=== PATIENT | male | born 1945 | race Caucasian/White ===

== ENCOUNTER 2017-07-26 09:08 | Emergency (ER) | payer OTHER, MEDICARE ==
[~2017-07-26] VITALS: Ht 180.3 cm; Wt 102.1 kg
[2017-07-26 09:13] VITALS: BP_SYST 110
[2017-07-26 10:15] VITALS: BP_SYST 110
== END 2017-07-26 10:15 | disposition home or self-care (01) ==
LOC: SED 09:08
DX: S92.334A Nondisplaced fracture of third metatarsal bone, right foot, initial encounter for closed fracture (principal); W01.0XXA Fall on same level from slipping, tripping and stumbling without subsequent striking against object, initial encounter; Y93.89 Activity, other specified; Y92.89 Other specified places as the place of occurrence of the external cause; Y99.8 Other external cause status
CPT/HCPCS: 99284